=== PATIENT | female | born 1950 | race Caucasian/White ===

== ENCOUNTER → 2016-08-26 | Outpatient (CLI) | payer OTHER ==
[~2016-08-26] MED LIST: ASPIRIN FOR CHI81 MG PO; CALCIUM WITH VI1 TAB PO; LISINOPRIL10 MG PO; MASON NATURAL600 MG PO
[2016-08-26 13:39] LABS: URINE BILIRUBIN - DIPSTICK NEGATIVE (NEG); URINE BLOOD NEGATIVE (NEG)
[2016-08-26 13:48] LABS: URINE SQUAMOUS CELLS OCC #/hpf (0-5)
[2016-08-26 13:55] LABS: BUN 13 mg/dL (7-18); GFR (ESTIMATED) 100 ML/MIN (59-)
[2016-08-26 15:09] LABS: HEMOGLOBIN 13.7 g/dL (12.2-16.2); LYMPH # 1.8 K/mm3 (0.7-4.5); LYMPH % 25.5 % (10-50.0)
== END ==
LOC: CARL-LAB 10:03
PROVIDERS: Orthopaedic Surgery
DX: Z01.818 Encounter for other preprocedural examination (principal)